=== PATIENT | female | born 1935 | race Caucasian/White ===

== ENCOUNTER 2017-06-06 10:39 | Emergency (ER) | payer MEDICARE, OTHER ==
[2017-06-06 10:58] VITALS: BP 142/59
[2017-06-06] MEDS ORDERED: methylPREDNISolone 125 MG* 2 ML VIAL IM ONE (11:16)
--- NOTE | 2017-06-06 11:22 | UC ---
Respiratory Complaint HPI - HPI Summary HPI Summary: cough and congestion for about 5 days. today she was walking accross the lawn and had some increased jean. she says this is not much of a change from [place] and says, "this can be normal for me." There is clear sputum production . her only copd med is combivent. She uses night time O2 and has not needed o2 this morning. - History of Current Complaint Chief Complaint: UCRespiratory Stated Complaint: COUGH Time Seen by Provider: 06/06/17 11:10 Hx Obtained From: Patient, Family/Dietary Server Onset/Duration: Gradual Onset, Lasting Days Timing: Constant Severity Initially: Mild Severity Currently: Moderate Character: Cough: Productive Aggravating Factors: Deep Breaths, Recumbent Position Alleviating Factors: Bronchodilator Associated Signs And Symptoms: Positive: Dyspnea, URI, Nasal Congestion. Negative: Fever, Chills, Pleuritic Chest Pain, Hemoptysis, Calf Pain, Calf Swelling - Allergies/Home Medications Allergies/Adverse Reactions: Allergies Allergy/AdvReac Type Severity Reaction Status Date / Time Cephalexin [From Keflex] Allergy Rash Verified 06/06/17 11:00 Erythromycin Allergy Rash Verified 06/06/17 11:00 Penicillins Allergy Rash Verified 06/06/17 11:00 Tetracycline Allergy Hives Verified 06/06/17 11:00 Home Medications: Home Medications Albuterol/Ipratropium RESP(NF) [Combivent Respimat(NF)] 1 aer IN TID PRN [History Confirmed 06/06/17] Amlodipine Besylate [Norvasc 5 mg tab] 5 mg PO QPM 06/06/17 [History Confirmed 06/06/17] Anastrozole [Arimidex] 1 mg PO DAILY 06/06/17 [History Confirmed 06/06/17] Aspirin [Aspirin 81 MG TAB] 81 mg PO DAILY 06/06/17 [History Confirmed 06/06/17] Atenolol TAB* [Tenormin TAB* 25 MG] 25 mg PO QPM 06/06/17 [History Confirmed ] Atorvastatin* [Lipitor*] 20 mg PO QPM 06/06/17 [History Confirmed 06/06/17] Caltrate With D 600 unit PO DAILY 06/06/17 [History Confirmed 06/06/17] Dextromethorphan-Guaifenesin [Mucinex Dm Maximum Streng 60-1200 mg] 1 tab PO BID PRN 06/06/17 [History Confirmed 06/06/17] Omeprazole [Prilosec] 20 mg PO DAILY 06/06/17 [History Confirmed 06/06/17] Oxybutynin Chloride [Oxybutynin Chloride ER] 5 mg PO QPM 06/06/17 [History Confirmed 06/06/17] Valsartan TAB* [Diovan TAB*] 320 mg PO DAILY 06/06/17 [History Confirmed ] Zertex- Zyrtec? 10 mg PO DAILY 06/06/17 [History Confirmed 06/06/17] PMH/Surg Hx/FS Hx/Imm Hx Previously Healthy: No - copd. 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 - Social History Lives: With Family Alcohol Use: Occasionally Substance Use Type: None Smoking Status (MU): Former Smoker Review of Systems Respiratory: Cough All Other Systems Reviewed And Are Negative: Yes Physical Exam Triage Information Reviewed: Yes Appearance: Well-Appearing, No Pain Distress, Well-Nourished Vital Signs: Initial Vital Signs Temp 98.9 F 06/06/17 10:46 Pulse 62 06/06/17 10:46 Resp 20 06/06/17 10:46 BP 142/59 06/06/17 10:46 Pulse Ox 96 06/06/17 10:46 Vital Signs Reviewed: No Eye Exam: Normal ENT Exam: Normal Neck exam: Normal Respiratory Exam: Other - good air movement throughout. no rales. there is a small wheeze in the COLBY. Respiratory: Positive: No respiratory distress, No accessory muscle use, Decreased breath sounds. Negative: Respiratory distress, Accessory muscle use, Crackles, Rhonchi, Stridor Cardiovascular Exam: Normal Abdominal Exam: Normal Musculoskeletal Exam: Normal Musculoskeletal: Negative: Edema @ Neurological Exam: Normal Psychological Exam: Normal Skin Exam: Normal UC Diagnostic Evaluation - Laboratory O2 Sat by Pulse Oximetry: 96 Respiratory Course/Dx - Course Course Of Treatment: mild copd exacerbation. Broad specturm antibiotics and prednisone. She will return for any worsening symptoms. - Differential Dx/Diagnosis Provider Diagnoses: copd exacerbation- acute. Discharge - Discharge Plan Condition: Good Disposition: HOME Prescriptions: Albuterol HFA INHALER* [Ventolin HFA Inhaler*] 1 puff INH Q4H PRN #1 mdi PRN Reason: Cough Levofloxacin TAB* [Levaquin TAB*] 750 mg PO DAILY #7 tab Spacer/Aerosol-Holding Chamber [Aerochamber Mini Aerosol] 1 mis INH Q4HR PRN #1 mis PRN Reason: Cough predniSONE TAB* [Deltasone TAB*] 20 mg PO BID #15 tab Patient Education Materials: COPD (Chronic Obstructive Pulmonary Disease) (ED) Additional Instructions: o2 at night. return here for any worsening. use the combivent 4 times a day and add albuterol inhaler with the spacer as needed between the combivent doses.
--- NOTE | 2017-06-06 11:47 | RAD ---
Indication: Worsening shortness of breath. 2 views of the chest including dual energy PA views demonstrates dextroscoliosis. Left midzone atelectasis is noted. Chronic pleural changes are noted. IMPRESSION: Chronic pleural changes. Left upper lobe atelectasis. No pneumonia is noted.
== END 2017-06-06 12:05 | disposition home or self-care (01) ==
LOC: UCCORT 10:39
DX: J44.1 Chronic obstructive pulmonary disease with (acute) exacerbation (principal); Z88.1 Allergy status to other antibiotic agents; Z88.0 Allergy status to penicillin; Z96.641 Presence of right artificial hip joint; Z87.891 Personal history of nicotine dependence
CPT/HCPCS: 71020; 96372; 99202; G0463; J2930